=== PATIENT | female | born 1955 | race Caucasian/White ===

== ENCOUNTER 2017-10-20 18:59 | Inpatient (IN) | payer OTHER ==
[~2017-10-20 18:59] MED LIST: ISOVUE-370 76%-LOCM 1 ML ONE
[2017-10-20 19:50] LABS: Hemoglobin 16.2 g/dL (12.0-16.0); Mean Corpuscular HGB CONC 32.8 g/dL (32.0-36.0); Mean Corpuscular Hemoglobin 31.1 pg (27.0-31.0); Mean Corpuscular Volume 94.8 fL (78.0-98.0); Mean Platelet Volume 7.3 fL (7.4-10.4); Platelet Count 261 thou/uL (130-400); RBC Distribution Width 11.1 % (11.5-14.5); Red Blood Cell (RBC) Count 5.23 mill/uL (4.20-5.40); White Blood Cell (WBC) Count 5.2 thou/uL (4.8-10.8)
[2017-10-20 20:10] LABS: ALT (SGPT) Less than 7 U/L (8-55); AST (SGOT) 24 U/L (5-34); Albumin 4.4 g/dL (3.4-4.8); Alkaline Phosphatase 91 U/L (40-150); Anion Gap 16 mmol/L (10-20); BUN (Urea Nitrogen) 19 mg/dL (9.8-20.1); Bilirubin, Total 0.3 mg/dL (0.2-1.2); Calc. Creatinine Clearance 0 mL/min (70-130); Carbon Dioxide 24 mmol/L (23-31); Chloride 100 mmol/L (98-107); Estimated GFR-MDRD 56; Globulin 2.9 g/dL (2.4-3.5); Glucose 113 mg/dL (80-115); Lipase 16 U/L (8-78); Potassium 3.6 mmol/L (3.5-5.1); Protein, Total 7.3 g/dL (6.0-8.3); Sodium 136 mmol/L (136-145)
[2017-10-20 20:11] LABS: Band 15 % (5-11); Eosinophils 2 % (0-10); Lymphocytes 49 % (21-51); MDiff Complete? YES; Monocytes 14 % (0-10); Neutrophil 17 % (42-75); PLT Morphology Comment Appears Adequate; RBC Morphology Normal; Reactive Lymphocytes 2 % (0-10)
[2017-10-20] MEDS ORDERED: metroNIDAZOLE 500 MG in Premix Bag 1 BAG IVPB SCH (22:30)
--- NOTE | 2017-10-20 22:47 | CT ---
CT ABDOMEN AND PELVIS WITH CONTRAST: 10/20/17 HISTORY: Abdominal pain. COMPARISON: None. FINDINGS: Calcified right infrahilar lymph nodes are present on the right. No pericardial effusion. There is mild hyperenhancement of the mucosa of nearly the entire colon. Mild submucosal edema of the ascending colon and transverse colon. The appendix is visualized and is normal. Superior mesenteric artery and celiac artery are both patent. Mild hyperenhancement of the mesentery of the distal ileum. No free intraperitoneal gas or fluid. The aortoiliac contour is nonaneurysmal. Renal enhancement is normal. Splenic enhancement is somewhat heterogeneous although felt within limits. The pancreas is unremarkable. The adrenal glands are normal. No hydroureteronephrosis. 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 Mild dextroscoliosis upper lumbar spine. IMPRESSION: Findings suggesting ileitis and colitis, uncomplicated. No evidence of fistula or abscess. POS: [facility]
[2017-10-21] MEDS ORDERED: Acetaminophen 325 MG TAB PO PRN (00:01)
[2017-10-21] MEDS ORDERED: Ondansetron ODT 4 MG TAB PO PRN (00:01)
[2017-10-21 00:07] LABS: Bilirubin Negative (Negative); Blood, Urine Trace (Negative); Clarity CLEAR (Clear); Glucose, Urine (Dipstick) Negative (Negative); Leukocyte Negative (Negative); Nitrite Negative (Negative); Protein, Urine (Dipstick) Negative (Neg-Trace); Urobilinogen 0.2 mg/dL (0.2-1.0); pH, Urine 5.5 (5.0-9.0)
[2017-10-21 00:10] LABS: Bacteria/HPF None Seen HPF (None Seen); Hyaline Casts/LPF 0-3 HYALINE CAST LPF (0-3 Hyaline); Squamous Epithelial 0-3 HPF (0-3); WBC/HPF 0-3 HPF (0-3)
[2017-10-21 00:11] VITALS: BMI 24.5
[2017-10-21] MEDS ORDERED: Ondansetron ODT 4 MG TAB SL PRN (00:14)
[2017-10-21] MEDS ORDERED: Ondansetron HCl/PF 4 MG/2 ML Vial IVP PRN (00:14)
[2017-10-21] MEDS ORDERED: Sodium Chloride 0.9% 1,000 ML IV SCH ×3 (00:14→07:21)
[2017-10-21 00:15] LABS: Specific Gravity, Urine 1.061 (1.002-1.036)
[2017-10-21] MEDS ORDERED: Azithromycin 250 MG TAB PO SCH (00:30)
[2017-10-21] MEDS ORDERED: Vancomycin HCl 25 MG/ML Oral PO SCH ×2 (00:30→09:00)
--- NOTE | 2017-10-21 00:41 | PDOC.FPRHP ---
- History of Present Illness Chief Complaint: Diarrhea History of Present Illness: Mrs. Carlisle presents with 4 day history of watery diarrhea. Pt returned from [place] 10/17 and that is when diarrhea began. Patient reports crampy abdominal pain, at least 6 times daily. Decreased appetite and fluid intake. Denies bloody stool. Has crampy abdominal pain that comes and goes, currently 5/ 10 but can be 12/10. Thursday evening and Thursday had fever, highest 101.2. Her diarrhea was worsening which prompted her to go to ER. She has had dizziness, lightheadedness, dry mouth, 8 lb weight loss. Last antibiotics taken were 2016 for sinus infection. Denies sick contacts. No other family members have similar symptoms. ED Course: 2 L IV fluid, CT, stool studies, flagyl, levaquin - Allergies/Adverse Reactions Allergies Allergy/AdvReac Type Severity Reaction Status Date / Time codeine Allergy Rash Verified 10/21/17 00:48 - Home Medications Medication Instructions Recorded Confirmed Type Carbidopa/Levodopa/Entacapone 2 tablet PO TID 10/21/17 10/21/17 History [Carbidopa-Levodopa 150 mg-Enta] - History PMHx:Parkinsons PSHx: Back surgery 5 yrs ago FHx:Father-[place] Social: and lives with . Works in the home. Denies tobacco and drug use. Drinks alcohol occasionally. - Review of Systems General: reports: fever/chills, weight/appetite/sleep changes (8 lb weight loss in past 4 days, loss of appetite), fatigue Eyes: denies: eye pain, vision changes ENT: denies: nasal congestion, rhinorrhea Respiratory: reports: cough (non-productive, associated with dry mouth). denies : congestion, shortness of breath, exercise intolerance Cardiovascular: denies: chest pain, palpitation, edema Gastrointestinal: reports: nausea, diarrhea, abdominal pain. denies: vomiting, GI bleeding Genitourinary: denies: incontinence, dysuria Skin: denies: rashes, lesions Musculoskeletal: denies: tenderness, swelling Neurological: denies: numbness, syncope, weakness Psychological: denies: anxiety, depression - Vital signs BP: [133/70] HR: [81] RR: [20] Tmax: [98.5] Pox: [97]% on [RA] Wt: [70] - Physical Exam Constitutional: NAD, awake, alert and oriented HEENT: normocephalic and atraumatic, PERRLA, no scleral icterus, grossly normal vision, TM's clear and intact, grossly normal hearing, MMM, oropharynx clear Neck: supple, trachea midline, no JVD, no thyromegaly Heart: RRR, normal S1/S2, pulses present, no edema Lungs: CTAB, good air movement, no rales/rhonchi, no wheezing Abdomen: soft, non-tender, bowel sounds present Musculoskeletal: normal structure, normal tone Neurological: no focal deficit Skin: no rash/lesions, capillary refill <2 seconds Heme/Lymphatic: no unusual bruising or bleeding, no petechia Psychiatric: normal mood and affect, good judgment and insight, intact recent and remote memory FMR H&P: Results - Labs Result Diagrams: 10/20/17 19:42 10/21/17 04:46 Lab results: WBC 5.2 thou/uL (4.8-10.8) 10/20/17 19:42 Hgb 16.2 g/dL (12.0-16.0) H 10/20/17 19:42 Hct 49.6 % (36.0-47.0) H 10/20/17 19:42 MCV 94.8 fL (78.0-98.0) 10/20/17 19:42 Plt Count 261 thou/uL (130-400) 10/20/17 19:42 Band Neuts % (Manual) 15 % (5-11) H 10/20/17 19:42 Sodium 136 mmol/L (136-145) 10/20/17 19:42 Potassium 3.6 mmol/L (3.5-5.1) 10/20/17 19:42 Chloride 100 mmol/L (98-107) 10/20/17 19:42 Carbon Dioxide 24 mmol/L (23-31) 10/20/17 19:42 BUN 19 mg/dL (9.8-20.1) 10/20/17 19:42 Creatinine 0.99 mg/dL (0.6-1.1) 10/20/17 19:42 Glucose 113 mg/dL (80-115) 10/20/17 19:42 Calcium 10.0 mg/dL (7.8-10.44) 10/20/17 19:42 Total Bilirubin 0.3 mg/dL (0.2-1.2) 10/20/17 19:42 AST 24 U/L (5-34) 10/20/17 19:42 ALT Less than 7 U/L (8-55) L 10/20/17 19:42 Alkaline Phosphatase 91 U/L (40-150) 10/20/17 19:42 Creatine Kinase 238 U/L (29-168) H 10/20/17 19:30 Serum Total Protein 7.3 g/dL (6.0-8.3) 10/20/17 19:42 Albumin 4.4 g/dL (3.4-4.8) 10/20/17 19:42 Lipase 16 U/L (8-78) 10/20/17 19:42 Urine Ketones 40 mg/dL (Negative) H 10/20/17 23:48 Urine Blood Trace (Negative) H 10/20/17 23:48 Urine Nitrite Negative (Negative) 10/20/17 23:48 Ur Leukocyte Esterase Negative (Negative) 10/20/17 23:48 Urine RBC 4-6 HPF (0-3) 10/20/17 23:48 Urine WBC 0-3 HPF (0-3) 10/20/17 23:48 Ur Squamous Epith Cells 0-3 HPF (0-3) 10/20/17 23:48 Urine Bacteria None Seen HPF (None Seen) 10/20/17 23:48 FMR H&P: A/P - Problem List (1) Diarrhea Current Visit: Yes Status: Acute Code(s): R19.7 - DIARRHEA, UNSPECIFIED Qualifiers: Diarrhea type: infectious Qualified Code(s): A09 - Infectious gastroenteritis and colitis, unspecified (2) C. difficile colitis Current Visit: Yes Status: Acute (3) Campylobacter antigen positive Current Visit: Yes Status: Acute Code(s): A04.5 - CAMPYLOBACTER ENTERITIS (4) Parkinson disease Current Visit: Yes Status: Chronic Code(s): G20 - PARKINSON'S DISEASE - Plan 62 yr old female with diarrhea, positive for C diff and campylobacter. C diff colitis -C diff assay positive, pending PCR -NS @ 125 -Vancomycin 125mg qid for 10 days, 1st dose 10/21 -stool O&P, fecal lactoferrin pending -Blood culture pending -monitor BMP -zofran prn nausea -tylenol prn pain/fever -CT ab/pelvis showed colitis and ileitis, uncomplicated. -flagyl/levaquin given in ER 10/20 Campylobacter colitis -campylobacter antigen positive - azithromycin 500mg daily for 3 days Hx of parkinsons -continue home med Ppx: SCDs, no GI ppx indicated at this time FMR H&P: Upper Level - Pertinent history 62 yr old female with history of parkinsons disease presents with profuse diarrhea for 4 days. She is concerned about dehydration. Started the day she returned from a 7 day trip to [place]. She states she was shaking a lot of people s hands in [place]. She reports a fever. She ate a little today but had not eaten in 48 hours prior to that. Reports diffuse abdominal pain. Dizziness began yesterday. No hematochezia, no hematemesis. No vomiting. No known ill contacts. has some mild diarrhea, not like hers. She hasnt had antibiotics for at least 6 months. - Pertinent findings Gen: NAD, resting comfortably. Heart: RRR, no M/R/G Lungs: CTAB, no Wheeze, rhales, rhonchi Abdomen: minimally tender diffusely, BS normal active Ext: no LE edema, posterior tibial pulse 2+ bilaterally. - Plan Date/Time: 10/21/17 0039 I, [Britney Talbert], have evaluated this patient and agree with findings/plan as outlined by editing internship resident. Pertinent changes/additions are listed here. Colitis 2/2 C. diff and campylobacter -s/p metronidazole and Levaquin in ER- discontinue -start oral azithromycin daily x 3 days for campylobacter 2/2 age -start oral vancomycin qid x 10 days for non severe, initial episode of C. diff -cont IV fluids until tolerating PO well -tylenol/Zofran PRN -pending stool cultures and O&P -pending blood cultures Parkinsons -stable -cont home meds DVT ppx- SCDs Code Status- DNR, editing internship discussed with patient and she would like to be DNR. She reports her will likely want her to be full code but DNR is what she feels comfortable with. Attending Addendum - Attending Addendum Date/Time: 10/21/17 0805 I personally evaluated the patient and discussed the management with Dr. Campbell on 10/20/2017 @ 23:35. I agree with the History, Examination, Assessment and Plan documented above with any addition or exceptions noted below- Briefly, this is a 62 year old female with h/o Parkinson's disease who presented with a 3 day history of diarrhea and decreased appetite. Reports 6-7 watery stools/day. (+) Abdominal cramping and fever to 101.6. Patient recently returned from a vacation in [place]. Reports her is also having some diarrhea but not as severe. (+) nausea. Minimal po intake. (+) dizziness. PMH/PSH/Meds/SH reviewed and agree with resident's documentation. Afebrile VSS. Exam repeated by me and agree with resident's findings. Labs: Stool studies- (+) Campylobacter Ag and (+) C. Difficile Ag and toxin. CT abd with ilietis and colitis A/P: Colitis secondary to Campylobacter and C. Difficile- continue po vancomycin and zithromax. Continue IVF. Clear liquids and advance as tolerated.
--- NOTE | 2017-10-21 05:15 | PDOC.FM ---
- Subjective Subjective: Patient says she did not sleep much last night as she was constantly having to get up to use the bathroom. Says she had diarrhea about 20 or so times overnight. Denies any melena or hematochezia. Also endorses some nausea but denies any vomiting. Also reports some B/L cramping in her calves and toes and some mild upper abdominal cramping. - Objective MAR Reviewed: Yes Vital Signs & Weight: Vital Signs (12 hours) Temp Pulse Resp BP Pulse Ox 10/20/17 23:51 98.0 F 85 22 H 113/71 96 Weight Weight 70.942 kg Result Diagrams: 10/20/17 19:42 10/21/17 04:46 EKG Reviewed by me: Yes Radiology Reviewed by me: Yes Radiology: Abdominal CT significant for uncomplicated ileitis & colitis w/ no evidence of abscess or fistula. Phys Exam - Physical Examination Constitutional: NAD HEENT: PERRLA Respiratory: no wheezing, no rales, no rhonchi Cardiovascular: RRR, no significant murmur Gastrointestinal: soft, non-tender, no distention, positive bowel sounds Musculoskeletal: no edema Neurological: moves all 4 limbs Psychiatric: normal affect, A&O x 3 Skin: no rash Dx/Plan (1) Dehydration, mild Code(s): E86.0 - DEHYDRATION Status: Acute Plan: - Seems to be corrected per improved BMP and clinical status. - Plan to deescalate IVFs today as patient is tolerating fluids PO & reassess tomorrow. (2) C. difficile colitis Status: Acute Plan: - Will continue with PO vancomycin for another day and reassess. - Will continue supportive management with IVFs & zofran & tylenol PRN for nausea & pain. (3) Campylobacter antigen positive Code(s): A04.5 - CAMPYLOBACTER ENTERITIS Status: Acute Plan: - Will continue with PO azithromycin x 2 days to complete the recommended 3 day antibiotic course. - Will continue with supportive care as described above. (4) Diarrhea Code(s): R19.7 - DIARRHEA, UNSPECIFIED Status: Acute Qualifiers: Diarrhea type: infectious Qualified Code(s): A09 - Infectious gastroenteritis and colitis, unspecified Plan: - Stool O&P pending. - Will continue with treatment of identified bacterial infections & supportive care as outlined above. (5) Parkinson disease Code(s): G20 - PARKINSON'S DISEASE Status: Chronic Plan: Aware. Continuing home medications.
[2017-10-21 05:52] LABS: Anion Gap 13 mmol/L (10-20); BUN (Urea Nitrogen) 13 mg/dL (9.8-20.1); Calc. Creatinine Clearance 83 mL/min (70-130); Calcium 8.8 mg/dL (7.8-10.44); Carbon Dioxide 23 mmol/L (23-31); Chloride 105 mmol/L (98-107); Estimated GFR-MDRD 75; Glucose 90 mg/dL (80-115); Potassium 3.8 mmol/L (3.5-5.1); Sodium 137 mmol/L (136-145)
[2017-10-21] MEDS ORDERED: CARBIDOPA PO SCH (09:00)
[2017-10-21] MEDS ORDERED: LEVODOPA PO SCH (09:00)
[2017-10-21] MEDS ORDERED: [UNRECOGNIZED DRUG - OTHER] PO SCH (09:00)
[2017-10-21] MEDS ORDERED: ENTACAPONE PO SCH (09:00)
[2017-10-21] MEDS: Carbidopa/Levodopa 25-100 mg Tablet PO SCH ×3 (09:02→20:49)
[2017-10-21] MEDS: Entacapone 200 mg Tablet PO SCH ×3 (09:04→20:48)
[2017-10-21] MEDS ORDERED: metroNIDAZOLE 500 MG TAB PO SCH (11:30)
--- NOTE | 2017-10-21 13:56 | ADD-PRG ---
DATE OF SERVICE: 10/21/2017 This is an addendum to the note of Dr. Gloria Gan. Ms. Carlisle is a pleasant 62-year-old lady who was admitted with diarrhea following a trip to [facility]. Initial studies showed Campylobacter and possibly C. diff. She is currently on appropriate ant ibiotic regimen. She has been fluid resuscitated and states that she feels much better. We will gra dually advance her diet in anticipation of possible discharge tomorrow.
[2017-10-21] MEDS: metroNIDAZOLE 500 MG TAB PO SCH ×2 (15:32→20:49)
[2017-10-22 05:01] LABS: Anion Gap 13 mmol/L (10-20); BUN (Urea Nitrogen) 8 mg/dL (9.8-20.1); Calc. Creatinine Clearance 90 mL/min (70-130); Calcium 9.3 mg/dL (7.8-10.44); Carbon Dioxide 26 mmol/L (23-31); Chloride 106 mmol/L (98-107); Estimated GFR-MDRD 83; Glucose 81 mg/dL (80-115); Potassium 3.7 mmol/L (3.5-5.1); Sodium 141 mmol/L (136-145)
--- NOTE | 2017-10-22 05:23 | PDOC.FM ---
- Subjective Subjective: Patient says she slept through the entire night without having to get up to use the bathroom. Says her nausea has improved and she was able to tolerate a soft diet yesterday such as jello. She denies any abdominal pain & is ok to go home today. - Objective MAR Reviewed: Yes Vital Signs & Weight: Vital Signs (12 hours) Temp Pulse Resp BP Pulse Ox 10/22/17 00:53 97.9 F 76 18 114/65 10/21/17 20:00 98.0 F 66 18 127/80 96 Weight Weight 70.942 kg I&O: 10/20/17 10/21/17 10/22/17 06:59 06:59 06:59 Intake Total 800 1870 Balance 800 1870 Result Diagrams: 10/20/17 19:42 10/22/17 04:07 EKG Reviewed by me: Yes Radiology Reviewed by me: Yes (Abd CT significant for uncomplicated ileitis and colitis.) Phys Exam - Physical Examination Constitutional: NAD HEENT: PERRLA Respiratory: no wheezing, no rales, clear to auscultation bilateral Cardiovascular: RRR, no significant murmur Gastrointestinal: soft, non-tender, no distention, positive bowel sounds Musculoskeletal: no edema Neurological: moves all 4 limbs Psychiatric: normal affect, A&O x 3 Skin: no rash Dx/Plan (1) Dehydration, mild Code(s): E86.0 - DEHYDRATION Status: Acute Plan: - Resolved. - BMP WNL this AM after being off of IVFs all day yesterday. (2) C. difficile colitis Status: Acute Plan: - Switched from PO Vancomycin to PO flagyl yesterday as vancomycin is very expensive and patient was anticipating being discharged this AM on a 9 day course of abx for this. - Will discharge on flagyl 500mg PO TID x 9 days. - Counselled patient regarding what precautions to take upon returning home such as using a bathroom separate from her should the diarrhea continue and exercising frequent and proper handwashing. (3) Campylobacter antigen positive Code(s): A04.5 - CAMPYLOBACTER ENTERITIS Status: Acute Plan: - Will administer second dose of azithromycin 500mg PO this AM prior to discharge & will send her home with final dose to complete the recommended 3 day antibiotic course. (4) Diarrhea Code(s): R19.7 - DIARRHEA, UNSPECIFIED Status: Acute Qualifiers: Diarrhea type: infectious Qualified Code(s): A09 - Infectious gastroenteritis and colitis, unspecified Plan: - Significantly improved per patient. - Stool O&P neg & stool lactoferrin elevated. - Will continue with treatment of identified bacterial infections as outlined above & encourage adequate PO hydration. (5) Parkinson disease Code(s): G20 - PARKINSON'S DISEASE Status: Chronic Plan: Aware. Will continue home medications.
[2017-10-22] MEDS ORDERED: Carbidopa/Levodopa 25-100 mg Tablet PO SCH (06:39)
[2017-10-22] MEDS: metroNIDAZOLE 500 MG TAB PO SCH (08:43)
[2017-10-22] MEDS: Entacapone 200 mg Tablet PO SCH (08:46)
[2017-10-22] MEDS ORDERED: Azithromycin 250 MG TAB PO SCH (09:00)
[2017-10-22 11:56] VITALS: BP 126/82; TEMP 98
--- NOTE | 2017-10-22 12:49 | ADD-PRG ---
DATE OF SERVICE: 10/22/2017 This is an addendum to the note of Dr. Gloria Gan, MsShamar Carlisle continues to look and feel much better. She has had no diarrhea since early yesterda y morning. Her abdomen feels much improved and appetite is good. She will be discharged today. She has 1 more dose of azithromycin and approximately 1 more week of Flagyl for her possible C. diff. G iven instructions of diet. Follow up with PCP if needed later next week.
--- NOTE | 2017-10-22 14:29 | DIS-2 ---
DATE OF ADMISSION: 10/21/2017 DATE OF DISCHARGE: 10/22/2017 RESIDENT: Gloria Gan M.D. ADMITTING ATTENDING: Dr. Sara Holt DISCHARGE ATTENDING: Dr. Raul Iglesias CONSULTATIONS: None. PROCEDURES: Abdomen and pelvis CT which was remarkable for ileitis and colitis uncomplicated with no evidence of fistula or abscess. PRIMARY DIAGNOSES: 1. Diarrhea. 2. Mild dehydration. 3. Clostridium difficile colitis. 4. Campylobacter antigen positive. SECONDARY DIAGNOSIS: Parkinson's disease. DISCHARGE MEDICATIONS: Carbidopa/levodopa, entacapone 150 mg 1 tablet p.o. t.i.d., azithromycin 500 mg p.o. for 1 day, metronidazole 500 mg p.o. t.i.d. for 9 days. DISCONTINUED MEDICATIONS: None. HOSPITAL COURSE: Ms. Carlisle is a 62-year-old female with a past medical history significant for Parkinson's disease who presented to the ED on 10/21/2017 with a chief complaint of generalized fatigue, decreased appetite and nonbloody, watery diarrhea that had been ongoing since Thursday10/18/2017 after returning from a trip to [place]. The patient also complained of feeling febrile and nauseated, but had no vomiting. She had basic labs drawn in the ED which were significant for a mildly elevated H&H of 16.2 and 49.6, likely secondary to dehydration. Her BMP was unremarkable. An abdominal CT was also ordered, which was significant for uncomplicated colitis and ileitis with no evidence of abscess or fistula. The patient was subsequently given 2L of NS & one dose of IV levaquin & azithromycin and was admitted overnight for observation where she was started on normal saline at 125 mL/hr. She was also switched to PO vancomycin and azithromycin. The patient continued to have diarrhea over the course of her first night in the hospital and the following morning's test results were significant for an elevated stool lactoferrin & positive C. difficile antigen and toxin & Campylobacter antigen. Blood cultures and stool cultures were within normal limits as well as that morning's BMP. She was able to tolerate food and liquids p.o. over the course of that day so her IVFs were stopped. The patient also continued on azithromycin 500 mg p.o. but was switched from p.o. vancomycin to p.o. Flagyl 500 mg t.i.d. On the morning of discharge (10/23), the patient reported significant improvement of her symptoms and complete resolution of her diarrhea. Her BMP was once again within normal limits signaling that she could remain adequately hydrated without the aid of IVFs. The patient was therefore cleared for discharge and sent home on p.o. Flagyl 500 mg 3 times a day and 1 remaining dose of azithromycin 500 mg p.o. The patient was counseled on the importance of proper hand washing & instructed to follow-up with her primary care physician if her diarrhea persisted for at least one more week following discharge. DISPOSITION: Stable. DISCHARGE INSTRUCTIONS: 1. Location: Home. 2. Diet: Regular diet, no restrictions. 3. Activity: Activity as tolerated, no restrictions. 4. Followup: The patient was instructed to follow up with her primary care physician if diarrhea continued for at least 1 week following discharge. SH[facility]
== END 2017-10-22 12:19 | disposition home or self-care (01) | DRG 373 ==
LOC: ERS 18:59 → T4-A 23:43
PROVIDERS: ADMIT Family Medicine; ATTEND Family Medicine
DX: A04.72 Enterocolitis due to Clostridium difficile, not specified as recurrent (principal); E86.0 Dehydration; A04.5 Campylobacter enteritis; G20 Parkinson's disease
CPT/HCPCS: 36415; 74177; 80048; 80053; 81003; 81015; 82550; 83630; 83690; 85025; 87040; 87045; 87046; 87324; 87328; 87329; 87449; 87493; 87899; 96361; 96365; A4216; J1956; J3370

== ENCOUNTER 2021-10-02 12:38 | Outpatient (CLI) | payer MEDICARE | END 2021-10-02 12:39 | disposition home or self-care (01) | LOC: BICMAMMO 12:38 | PROVIDERS: ATTEND Family Medicine Sports Medicine | DX: M81.0 Age-related osteoporosis without current pathological fracture (principal); Z78.0 Asymptomatic menopausal state | CPT/HCPCS: 77080 ==

== ENCOUNTER 2021-12-22 19:24 | Observation (INO) | payer MEDICARE ==
[~2021-12-22 19:24] MED LIST changes: -ISOVUE-370 76%-LOCM 1 ML ONE; +Iopamidol-370 76% 500 ML 1 ML ONE
[2021-12-22] MEDS ORDERED: Ondansetron PF 4 MG/2 ML Vial ONE (20:39)
[2021-12-22] MEDS ORDERED: Ketorolac Tromethamine 30 MG/ML VIAL ONE (20:39)
[2021-12-22 20:45] LABS: #Eosinphils 0.1 thou/uL (0.0-0.7); #Lymphocytes 2.2 thou/uL (1.20-3.40); #Monocytes 0.7 thou/uL (0.11-0.59); #Neutrophils 5.2 thou/uL (1.40-6.50); %Basophils 0.4 % (0.0-1.0); %Eosinophils 1.6 % (0.0-10.0); %Lymphocytes 26.9 % (21.0-51.0); %Monocytes 8.2 % (0.0-10.0); %Neutrophils 62.9 % (42.0-75.0); Hemoglobin 15.6 g/dL (12.0-16.0); Mean Corpuscular HGB CONC 33.8 g/dL (32.0-36.0); Mean Corpuscular Hemoglobin 32.8 pg (27.0-31.0); Mean Corpuscular Volume 97.2 fL (78.0-98.0); Mean Platelet Volume 7.7 fL (7.4-10.4); Platelet Count 254 thou/uL (130-400); RBC Distribution Width 10.9 % (11.5-14.5); Red Blood Cell (RBC) Count 4.74 mill/uL (4.20-5.40); White Blood Cell (WBC) Count 8.3 thou/uL (4.8-10.8)
[2021-12-22 21:08] LABS: ALT (SGPT) Less than 7 U/L (8-55); AST (SGOT) 18 U/L (5-34); Albumin 4.3 g/dL (3.4-4.8); Alkaline Phosphatase 97 U/L (40-110); Anion Gap 18 mmol/L (10-20); BUN (Urea Nitrogen) 12 mg/dL (9.8-20.1); Bilirubin, Total 0.3 mg/dL (0.2-1.2); Calc. Creatinine Clearance 0 mL/min (70-130); Calcium 9.6 mg/dL (7.8-10.44); Carbon Dioxide 22 mmol/L (23-31); Chloride 104 mmol/L (98-107); Estimated GFR 80; Globulin 2.8 g/dL (2.4-3.5); Glucose 95 mg/dL (80-115); Lipase 8 U/L (8-78); Protein, Total 7.1 g/dL (5.8-8.1); Sodium 140 mmol/L (136-145)
[2021-12-22] MEDS ORDERED: Glycerin Adult Supp. (24 ct jar) RC SCH (22:45)
[2021-12-22 23:57] LABS: Bilirubin Negative (Negative); Blood, Urine Negative (Negative); Clarity Clear (Clear); Glucose, Urine (Dipstick) Normal (Negative); Ketone, Urine 20 mg/dL (Negative); Leukocyte Negative Leu/uL (Negative); Nitrite Negative (Negative); Protein, Urine (Dipstick) Negative (Neg-Trace); Urobilinogen Normal mg/dL (Less than 2); pH, Urine 5.5 (5.0-9.0)
[2021-12-23 00:01] LABS: Specific Gravity, Urine 1.049 (1.002-1.036)
[2021-12-23 03:11] VITALS: BMI 22.7
[2021-12-23 03:42] LABS: SARS-CoV-2 NAA Rapid Test Not Detected (NotDetected)
[2021-12-23] MEDS ORDERED: Magnevist 469MG/ML 20 ML VIAL ONE ×2 (13:21)
[2021-12-23] MEDS ORDERED: Ondansetron PF 4 MG/2 ML Vial IVP PRN (14:50)
[2021-12-23] MEDS ORDERED: Acetaminophen 325 MG TAB PO PRN (14:50)
[2021-12-23] MEDS ORDERED: Ondansetron ODT 4 MG TAB PO PRN (14:50)
[2021-12-23] MEDS ORDERED: Docusate 100 MG CAP PO PRN (15:30)
[2021-12-23] MEDS: Entacapone 200 mg Tablet PO SCH (19:45)
[2021-12-23] MEDS: Carbidopa/Levodopa 25-100 mg Tablet PO SCH (19:45)
[2021-12-24] MEDS: Carbidopa/Levodopa 25-100 mg Tablet PO SCH ×3 (04:01→20:45)
[2021-12-24] MEDS: Entacapone 200 mg Tablet PO SCH ×3 (04:01→20:45)
[2021-12-24 05:54] LABS: #Basophils 0.1 thou/uL (0.0-0.2); #Eosinphils 0.2 thou/uL (0.0-0.7); #Lymphocytes 2.8 thou/uL (1.20-3.40); #Monocytes 0.6 thou/uL (0.11-0.59); #Neutrophils 4.4 thou/uL (1.40-6.50); %Basophils 0.8 % (0.0-1.0); %Eosinophils 2.5 % (0.0-10.0); %Lymphocytes 34.5 % (21.0-51.0); %Monocytes 7.7 % (0.0-10.0); %Neutrophils 54.5 % (42.0-75.0); Hemoglobin 14.7 g/dL (12.0-16.0); Mean Corpuscular HGB CONC 33.9 g/dL (32.0-36.0); Mean Corpuscular Volume 97.2 fL (78.0-98.0); Platelet Count 260 thou/uL (130-400); RBC Distribution Width 10.9 % (11.5-14.5); Red Blood Cell (RBC) Count 4.45 mill/uL (4.20-5.40); White Blood Cell (WBC) Count 8.1 thou/uL (4.8-10.8)
[2021-12-24 06:16] LABS: ALT (SGPT) 8 U/L (8-55); AST (SGOT) 18 U/L (5-34); Albumin 3.9 g/dL (3.4-4.8); Alkaline Phosphatase 88 U/L (40-110); Anion Gap 13 mmol/L (10-20); BUN (Urea Nitrogen) 14 mg/dL (9.8-20.1); Bilirubin, Total 0.5 mg/dL (0.2-1.2); Calc. Creatinine Clearance 68 mL/min (70-130); Calcium 9.4 mg/dL (7.8-10.44); Carbon Dioxide 26 mmol/L (23-31); Chloride 106 mmol/L (98-107); Estimated GFR 78; Globulin 2.5 g/dL (2.4-3.5); Glucose 98 mg/dL (80-115); Protein, Total 6.4 g/dL (5.8-8.1); Sodium 141 mmol/L (136-145)
[2021-12-24 06:20] LABS: Potassium 4.3 mmol/L (3.5-5.1)
[2021-12-24] MEDS ORDERED: Midazolam HCl 2 mg/2 ml Vial ONE (12:25)
[2021-12-24] MEDS ORDERED: fentaNYL Citrate/PF 100 MCG/2 ML SYRINGE ONE (12:26)
[2021-12-24] MEDS ORDERED: Lidocaine 1% MPF 2 ML VIAL ONE (12:30)
[2021-12-24] MEDS ORDERED: PROPOFOL 200 MG/20 ML VIAL ONE (12:30)
[2021-12-25] MEDS: Carbidopa/Levodopa 25-100 mg Tablet PO SCH ×2 (03:39→12:00)
[2021-12-25] MEDS: Entacapone 200 mg Tablet PO SCH ×2 (03:40→12:00)
[2021-12-25 05:50] LABS: #Eosinphils 0.3 thou/uL (0.0-0.7); #Lymphocytes 1.8 thou/uL (1.20-3.40); #Monocytes 0.7 thou/uL (0.11-0.59); #Neutrophils 4.7 thou/uL (1.40-6.50); %Basophils 0.6 % (0.0-1.0); %Eosinophils 4.5 % (0.0-10.0); %Lymphocytes 24.2 % (21.0-51.0); %Monocytes 9.1 % (0.0-10.0); %Neutrophils 61.7 % (42.0-75.0); Hemoglobin 14.6 g/dL (12.0-16.0); Mean Corpuscular HGB CONC 33.4 g/dL (32.0-36.0); Mean Corpuscular Hemoglobin 32.8 pg (27.0-31.0); Mean Corpuscular Volume 98.3 fL (78.0-98.0); Platelet Count 242 thou/uL (130-400); RBC Distribution Width 10.9 % (11.5-14.5); Red Blood Cell (RBC) Count 4.45 mill/uL (4.20-5.40); White Blood Cell (WBC) Count 7.6 thou/uL (4.8-10.8)
[2021-12-25 06:21] LABS: ALT (SGPT) Less than 7 U/L (8-55); AST (SGOT) 25 U/L (5-34); Albumin 3.8 g/dL (3.4-4.8); Alkaline Phosphatase 82 U/L (40-110); Anion Gap 14 mmol/L (10-20); BUN (Urea Nitrogen) 12 mg/dL (9.8-20.1); Bilirubin, Total 0.5 mg/dL (0.2-1.2); Calc. Creatinine Clearance 69 mL/min (70-130); Calcium 9.3 mg/dL (7.8-10.44); Carbon Dioxide 27 mmol/L (23-31); Chloride 104 mmol/L (98-107); Estimated GFR 79; Globulin 2.8 g/dL (2.4-3.5); Glucose 99 mg/dL (80-115); Potassium 4.3 mmol/L (3.5-5.1); Protein, Total 6.6 g/dL (5.8-8.1); Sodium 141 mmol/L (136-145)
[2021-12-25] MEDS ORDERED: Cyclobenzaprine 10 MG TAB PO PRN (06:50)
[2021-12-25] MEDS: Senokot S 8.6-50 MG TAB PO SCH ×2 (08:12→08:17)
[2021-12-25] MEDS ORDERED: Lidocaine 5% Patch TD SCH (09:00)
[2021-12-25] MEDS ORDERED: Polyethylene Glycol 3350 17 GM Packet PO SCH (09:00)
[2021-12-25 12:32] VITALS: BP 138/83; TEMP 97.7
[2021-12-25] MEDS ORDERED: Transdermal Patch Removal TOP SCH (21:00)
[2021-12-30] MEDS ORDERED: Alendronate Sodium 70 mg Tablet PO SCH (09:00)
== END 2021-12-25 12:23 | disposition home or self-care (01) ==
LOC: ERS 19:24 → SURG B 12-23 01:29
PROVIDERS: ADMIT Internal Medicine; ATTEND Internal Medicine
DX: S22.080A Wedge compression fracture of T11-T12 vertebra, initial encounter for closed fracture (principal); M54.50 Low back pain, unspecified; M81.0 Age-related osteoporosis without current pathological fracture; G20 Parkinson's disease; K59.00 Constipation, unspecified; S32.018A Other fracture of first lumbar vertebra, initial encounter for closed fracture; M47.814 Spondylosis without myelopathy or radiculopathy, thoracic region; G96.191 Perineural cyst; M51.34 Other intervertebral disc degeneration, thoracic region; M47.815 Spondylosis without myelopathy or radiculopathy, thoracolumbar region; M48.05 Spinal stenosis, thoracolumbar region; M51.36 Other intervertebral disc degeneration, lumbar region; M47.816 Spondylosis without myelopathy or radiculopathy, lumbar region; M48.061 Spinal stenosis, lumbar region without neurogenic claudication; M47.817 Spondylosis without myelopathy or radiculopathy, lumbosacral region; Z79.83 Long term (current) use of bisphosphonates; Z79.899 Other long term (current) drug therapy; Z88.5 Allergy status to narcotic agent; Z20.822 Contact with and (suspected) exposure to COVID-19; Z98.890 Other specified postprocedural states
CPT/HCPCS: 72157; 72158; 74177; 80053 ×3; 81003; 83690; 85025 ×3; 97116; 97535; U0002; 36415; 96361; 96374; A9579; G0378; J1885; J2250; J2405; J2704; Q9967

== ENCOUNTER 2022-01-14 10:43 | Outpatient (CLI) | payer MEDICARE | END 2022-01-14 10:44 | disposition home or self-care (01) | LOC: RAD 10:43 | PROVIDERS: ATTEND Physician Assistant Surgical | DX: S22.081D Stable burst fracture of T11-T12 vertebra, subsequent encounter for fracture with routine healing (principal); S32.009K Unspecified fracture of unspecified lumbar vertebra, subsequent encounter for fracture with nonunion; M41.9 Scoliosis, unspecified | CPT/HCPCS: 72072; 72100 ==